=== PATIENT | female | born 2000 | race Caucasian/White ===

== ENCOUNTER → 2019-06-04 17:47 | Outpatient (BNVA) | payer BC, SELFPAY | PROVIDERS: Family Provider Nurse Practitioner; PCP Nurse Practitioner; Visit Provider Nurse Practitioner Family | DX: R11.0 Nausea (principal) | CPT/HCPCS: 81025 ==

== ENCOUNTER → 2019-12-10 18:14 | Outpatient (BNVA) | payer BC, SELFPAY | PROVIDERS: Family Provider Nurse Practitioner; PCP Nurse Practitioner; Visit Provider Nurse Practitioner Family | DX: N92.6 Irregular menstruation, unspecified (principal); Z32.01 Encounter for pregnancy test, result positive | CPT/HCPCS: 81025 ==

== ENCOUNTER → 2020-01-26 10:04 | Outpatient (BNVA) | payer BC, MEDICAID, SELFPAY | PROVIDERS: Family Provider Nurse Practitioner; PCP Nurse Practitioner; Visit Provider Obstetrics & Gynecology | DX: Z34.01 Encounter for supervision of normal first pregnancy, first trimester (principal) | CPT/HCPCS: 80307; 84315; 85027; 86592; 86762; 86803; 86850; 86900; 87086; 87340; 87806 ==

== ENCOUNTER → 2020-02-08 13:53 | Outpatient (BNVA) | payer BC, MEDICAID, SELFPAY | PROVIDERS: Family Provider Nurse Practitioner; PCP Nurse Practitioner; Visit Provider Obstetrics & Gynecology | DX: Z34.01 Encounter for supervision of normal first pregnancy, first trimester (principal); B37.3 Candidiasis of vulva and vagina | CPT/HCPCS: 84315; 87210; 87591; 88175 ==

== ENCOUNTER → 2020-03-02 13:08 | Outpatient (BNVA) | payer BC, MEDICAID, SELFPAY | PROVIDERS: Family Provider Nurse Practitioner; PCP Nurse Practitioner; Visit Provider Nurse Practitioner Women's Health | DX: Z34.01 Encounter for supervision of normal first pregnancy, first trimester (principal); B37.3 Candidiasis of vulva and vagina | CPT/HCPCS: 84315; 88175 ==

== ENCOUNTER → 2020-04-06 08:12 | Outpatient (BNVA) | payer BC, MEDICAID, SELFPAY | PROVIDERS: Family Provider Nurse Practitioner; PCP Nurse Practitioner; Visit Provider Obstetrics & Gynecology | DX: Z34.02 Encounter for supervision of normal first pregnancy, second trimester (principal) | CPT/HCPCS: 76805 ==

== ENCOUNTER → 2020-05-28 10:08 | Outpatient (BNVA) | payer BC, MEDICAID, SELFPAY | PROVIDERS: Family Provider Nurse Practitioner; PCP Nurse Practitioner; Visit Provider Obstetrics & Gynecology | DX: Z34.03 Encounter for supervision of normal first pregnancy, third trimester (principal) | CPT/HCPCS: 82950; 84315; 85027 ==

== ENCOUNTER → 2020-06-01 08:22 | Outpatient (BNVA) | payer BC, MEDICAID, SELFPAY | PROVIDERS: Family Provider Nurse Practitioner; PCP Nurse Practitioner; Visit Provider Obstetrics & Gynecology | DX: Z34.03 Encounter for supervision of normal first pregnancy, third trimester (principal); R73.09 Other abnormal glucose | CPT/HCPCS: 82951; 82952 ==

== ENCOUNTER 2020-07-10 19:28 | Outpatient (CLI) | payer BC, MEDICAID, SELFPAY ==
[2020-07-10 19:41] VITALS: BP 122/83; PULSE 130
[2020-07-10 20:26] VITALS: BP 109/78; PULSE 98; TEMP 36.8
[2020-07-10 20:28] VITALS: BMI 27.3
[2020-07-10 20:36] VITALS: BP 109/78; PULSE 98; RESP 16; TEMP 36.8
[2020-07-10 20:42] VITALS: BP 109/78; PULSE 98; RESP 16; TEMP 36.8
== END 2020-07-10 20:47 | disposition home or self-care (01) ==
LOC: OPOB 19:29 → OBGYN 19:30
PROVIDERS: Family Provider Nurse Practitioner; PCP Nurse Practitioner; Visit Provider Obstetrics & Gynecology
DX: O26.899 Other specified pregnancy related conditions, unspecified trimester (principal); Z3A.00 Weeks of gestation of pregnancy not specified; N89.8 Other specified noninflammatory disorders of vagina
CPT/HCPCS: 59025; 83986; 99211

== ENCOUNTER → 2020-07-20 09:13 | Outpatient (BNVA) | payer BC, MEDICAID, SELFPAY | PROVIDERS: Family Provider Nurse Practitioner; PCP Nurse Practitioner; Visit Provider Obstetrics & Gynecology | DX: Z34.03 Encounter for supervision of normal first pregnancy, third trimester (principal) | CPT/HCPCS: 84315; 87081 ==

== ENCOUNTER 2020-07-27 23:34 | Outpatient (CLI) | payer BC, MEDICAID, SELFPAY ==
[2020-07-27 23:34] VITALS: BMI 27.9
[2020-07-27 23:42] VITALS: RESP 16
[2020-07-27 23:51] VITALS: BP 113/76; PULSE 98; TEMP 36.6
== END 2020-07-28 02:03 | disposition home or self-care (01) ==
LOC: OPOB 23:41 → OBGYN 07-28 01:59
PROVIDERS: Family Provider Nurse Practitioner; PCP Nurse Practitioner; Visit Provider Obstetrics & Gynecology
DX: O26.899 Other specified pregnancy related conditions, unspecified trimester (principal); Z3A.00 Weeks of gestation of pregnancy not specified; R10.9 Unspecified abdominal pain
CPT/HCPCS: 59025; 84315; 99211

== ENCOUNTER 2020-08-03 10:32 | Inpatient (IN) | payer BC, MEDICAID, SELFPAY ==
[2020-08-03] VITALS (44 sets, daily range): BP systolic 96–138; BP diastolic 54–94; PULSE 68–142; RESP 16–18; TEMP 36.2–36.7; O2SAT 86–99; BMI 28.1
[2020-08-03 10:57] LABS: Basophils % 0.2 %; Eosinophils % 0.2 %; Hematocrit 35.6 % (37.0-47.0); Hemoglobin 11.7 g/dL (11.5-15.3); Lymphocytes # 2.3 10^3/uL (0.8-4.8); Mean Corpuscular HGB Conc 32.9 g/dL (30.0-36.0); Mean Corpuscular Hemoglobin 28.2 pg (28.0-34.0); Mean Corpuscular Volume 85.8 fL (81-99); Mean Platelet Volume 12.1 fL (7.4-10.4); Monocytes % 6.2 %; Neutrophils # 12.12 10^3/uL (1.8-7.7); Neutrophils % 77.9 %; Nucleated Red Blood Cells % 0 %; Platelet Count 203 10^3/cmm (130-400); Red Blood Count 4.15 10^6/uL (4.1-5.3); Red Cell Distribution Width 13.2 % (12.1-15.1); White Blood Count 15.6 10^3/uL (4.0-10.0)
[2020-08-03] MEDS: dextrose 5%-lactated ringers 1,000 ML 125 ML IV ×2 (10:58→19:56)
[2020-08-03] MEDS: fentaNYL 50 mcg/mL INJ 2mL IVP ×4 (10:58→18:26)
--- NOTE | 2020-08-03 12:16 | PC.NUTR ---
Nutrition risk triggered d/t to MST score of 2, however spoke with nurse who reports this was in error. Pt has not lost weight unintentionally recently. Will not complete assessment at this time, but will assess at LOS or as needed.
[2020-08-03] MEDS: lactated ringers 1,000 ML 999 ML IV (18:26)
--- NOTE | 2020-08-03 19:34 | P.ANESASSM_ITS ---
Pre-Anesthetic Assessment Pre-Anesthetic Assessment: Height/Weight: Height 1.6 m Weight 72.121 kg Temp Pulse Resp BP Pulse Ox 98.1 F 111 H 18 122/86 98 08/03/20 16:52 08/03/20 19:31 08/03/20 18:26 08/03/20 19:30 08/03/20 19:31 Was Beta Mario taken within 24 hours: N/A Was Clonidine taken within 24 hours: N/A Social: Social History: No alcohol and No tobacco Exam: Pre-Anes Outpt Exam: alert and oriented x 3 Airway: Submandibular: WNL Cervical ROM: WNL MP: 3 History/ROS: No significant history except as noted and No significant complaints Neuropsych: Neuropsych: Anxiety Anesthetic Plan: ASA status: 2 Anesthesia: Anesthesia Evaluation and Regional (specify below) Other: labor epidural Risk of > 500 ml blood loss (7ml/kg in children): No Meds/Allergies Current Medications: Current Medications Generic Name Dose Route Start Last Admin Trade Name Freq PRN Reason Stop Dose Admin Fentanyl 25 - 100 mcg 08/03/20 10:39 08/03/20 18:26 Fentanyl 50 Mcg/ Ml Inj 2ml IVP 100 mcg Q1H PRN Administration SEVERE PAIN Dextrose/Lactated Ringer's 1,000 mls @ 125 m ls/hr 08/03/20 10:45 08/03/20 18:31 Dextrose 5%-Lact ated Ringers IV Infused .Q8H JENNIFFER Infusion Lactated Ringer's 1,000 mls @ 999 m ls/hr 08/03/20 18:19 08/03/20 18:26 Lactated Ringers IV 999 mls/hr .Q1H1M PRN Administration See label comment s PFSH Anesthesia PFSH: Medical History Anxiety No pertinent past medical history neghx: htn,dm,thyroid,dvt/pe, herpes ----denies partner with herpes Surgical History No pertinent past surgical history Family History Family/Other Breast cancer Maternal Great Grandmother-- dx age unknown Diabetes Maternal side in general Grandmother Diabetes Maternal Grandfather Heart disease Maternal Hypertension Maternal Mother Hypercholesteremia Hypertension Female Reproductive History: : 1 Data Anesthesia CBC & Chem 7: 08/03/20 10:25 Other Labs: Laboratory Results - last 48 hr 08/03/20 08/03/20 10:25 10:25 WBC 15.6 H RBC 4.15 Hgb 11.7 Hct 35.6 L MCV 85.8 MCH 28.2 MCHC 32.9 RDW 13.2 Plt Count 203 MPV 12.1 H Neut % (Auto) 77.9 Lymph % (Auto) 15.0 [place] % (Auto) 6.2 Eos % (Auto) 0.2 Baso % (Auto) 0.2 Neut # (Auto) 12.12 H Lymph # (Auto) 2.3 [place] # (Auto) 1.0 H Eos # (Auto) 0.0 Baso # (Auto) 0.0 Nucleated RBC % (auto) 0 Nucleated RBCs # 0.0 Nasal/Oral COVID-19 PCR Cancelled Cardiac Studies: No Data to Display Anesthesia Procedures Date of Procedure: 08/03/20 Epidural: Time Out Performed: Yes Consents Signed: Procedure Consent Consent: from patient Lumbar Level: L2-L3 Epidural position: sitting Epidural procedure: sterile prep of area, 1% lidocaine to numb the area, 18 g needle, neg for paresthesia, test dose given (3ml), 1.5% xylocaine 1:200k epi, 0.2% Ropivacaine bolus ml (5ml), placed PCEA, no systemic response, sterile dressing applied, L.U.D. no apparent complications and 0.2% Ropiavacaine @ mls/hr (13)
[2020-08-04] VITALS (27 sets, daily range): BP systolic 99–139; BP diastolic 57–91; PULSE 79–130; RESP 16–18; TEMP 36.6–37
--- NOTE | 2020-08-04 02:28 | PM.OPHPUD ---
Labor & Delivery H&P Update Date of Procedure: August 04, 2020 Date H&P Performed: 07/27/20 H&P update information: I have reviewed H&P completed within last 30 days, I have examined patient prior to procedure and Changes to prior documentation as noted here Changes to previous documentation: cervix is now 4100/-2 Admission Diagnosis: Preop diagnosis: iup at 38 3/7
[2020-08-04] MEDS: dextrose 5%-lactated ringers 1,000 ML 125 ML IV (03:43)
[2020-08-04] MEDS: ondansetron 2 mg/ML SDV 2 mL 4 MG IVP (03:45)
[2020-08-04] MEDS: oxytocin 30 UNIT/500 ML BAG 600 UNIT IV (05:35)
[2020-08-04] MEDS: lidocaine 2% INJ 20 mL INJECTION (06:15)
--- NOTE | 2020-08-04 06:20 | P.PCNOB_ITS ---
Delivery Note: Date of delivery: August 04, 2020 Pre-delivery diagnoses: IUP at 38 3/ Post-delivery diagnoses: same-delivered Procedure: Op report anesthesia: Epidural Delivering Physician: viktoriya Estimated blood loss (mL): 300 Findings: term male in cephalic presentation Pre-Delivery Course: The patient was admitted in active labor. She progressed normally. She received an epidural for pain control. Delivery: The patient had complete cervical dilation and began to push. The head delivered in the REHANA position over an intact perineum under epidural anesthesia. The nose and mouth were bulb suctioned. The shoulders and body delivered atraumatically. The baby was placed onto the mother's abdomen. The cord was clamped and cut. Cord blood was obtained. The placenta delivered spontaneously. It was inspected and found to be intact. Inspection of the perineum revealed a second-degree perineal laceration with extension into the right sulcus. This was repaired in the usual fashion.. Estimated blood loss 300 mL. Apgars on baby were 9 at 1 minute and 9 at 5 minutes. Weight of baby is 7 pounds 12 ounces. Mother and baby were stable post delivery. Coding Level of Care Code Acute Sticker Operator for Clara Lane
[2020-08-04] MEDS: prenatal vitamin Capsule 1 CAP PO (10:01)
[2020-08-04] MEDS: ibuprofen 800 mg tablet PO ×3 (10:02→21:37)
[2020-08-04] MEDS: docusate sodium 100 mg Capsule PO ×2 (10:02→18:45)
[2020-08-04] MEDS: benzocaine-menthol 78 gm Canister 1 SPRAY TOPICAL (10:02)
[2020-08-04 12:53] LABS: Quest SARS-CoV-2 RNA NOT DETECTED (NOT DETECTED)
--- NOTE | 2020-08-04 12:53 | PC.NURSE ---
1020 Pt moved to room OB 11. Pt ambulated and tolerated well. Pt oriented to room. Pt's mom at side. Baby moved with mom via open crib.
[2020-08-04 18:06] LABS: Hematocrit 31.8 % (37.0-47.0); Mean Corpuscular HGB Conc 31.4 g/dL (30.0-36.0); Mean Corpuscular Hemoglobin 27.6 pg (28.0-34.0); Mean Corpuscular Volume 87.8 fL (81-99); Mean Platelet Volume 11.7 fL (7.4-10.4); Platelet Count 204 10^3/cmm (130-400); Red Blood Count 3.62 10^6/uL (4.1-5.3); Red Cell Distribution Width 13.2 % (12.1-15.1); White Blood Count 21.7 10^3/uL (4.0-10.0)
[2020-08-05 06:28] VITALS: BP 113/77; PULSE 86; TEMP 36.8
--- NOTE | 2020-08-05 06:49 | PC.NURSE ---
Discussed positioning for , latch techniques, how to use a shield and hand expression. latched with 24mm nipple shield and audible swallows were heard. Patient stated that the latch was more comfortable.
[2020-08-05] MEDS: lanolin oint 7 gm 1 APPLIC TOPICAL (07:19)
[2020-08-05] MEDS: acetaminophen 325 mg Tablet 650 MG PO (07:19)
[2020-08-05] MEDS: benzocaine-menthol 78 gm Canister 1 SPRAY TOPICAL (07:19)
[2020-08-05] MEDS: prenatal vitamin Capsule 1 CAP PO (09:45)
[2020-08-05] MEDS: docusate sodium 100 mg Capsule PO (09:45)
[2020-08-05] MEDS: ibuprofen 800 mg tablet PO (09:45)
[2020-08-05 09:50] VITALS: BP 116/81; PULSE 88; RESP 16; TEMP 36.7
[2020-08-05 10:10] VITALS: BP 116/81; PULSE 88; RESP 16; TEMP 36.7
--- NOTE | 2020-08-05 10:21 | PM.DCS ---
Discharge Providers Date of Admission: 08/03/20 10:32 Date of Discharge: August 05, 2020 Attending Provider at Admission: Shaheen Linda MD Attending Provider at Discharge: Shaheen Linda MD Primary Care Provider: BRIGIDA Shen Diagnoses at Discharge Discharge Diagnosis (1) state: Status: Acute Reason for Visit Reason for Visit: Abdominal pain Hospital Course Hospital Course The patient was admitted in active labor. She had spontaneous delivery of a term male . She did well and was ready for discharge on day #1 Physical Exam Urinary Catheter Management^: Hernandez: Cath Placed During This Visit: yes, but has since been removed by the nurse Reason for Continuing Indwelling Catheter: Decision to DC Catheter Urinary Catheter Date of Insertion: 08/03/20 Urinary Catheter Time of Insertion: 19:35 Date Urinary Catheter Removed: 08/04/20 Time Urinary Catheter Discontinued: 05:20 Discharge Data Data Completed and Pending: Labs from last 24 hours 08/04/20 08/03/20 17:50 10:25 WBC 21.7 H RBC 3.62 L Hgb 10.0 L Hct 31.8 L MCV 87.8 MCH 27.6 L MCHC 31.4 RDW 13.2 Plt Count 204 MPV 11.7 H SARS-CoV-2 RNA (RT -PCR) Not detected Vitals: Last Vital Signs Temp 98.1 F 08/05/20 10:10 Pulse 88 08/05/20 10:10 Resp 16 08/05/20 10:10 BP 116/81 08/05/20 10:10 Pulse Ox 99 08/03/20 19:41 Discharge Plan Discharge Patient Disposition: Home Condition: Stable Prescriptions: Continued prenat.vits,jared,[id number] Tablet 1 tab PO DAILY RF: 0 fluoxetine 20 mg capsule 20 mg PO DAILY Qty: 30 RF: 6 Discharge Orders: Discharge Order (Routine); Ordered 08/05/20 Ordered By: Kisha Bravo Referrals: Kisha Bravo MD [Physician] - 6 Weeks (Call first thing thursday morning to schedule your 6 week post- visit. ) Patient Instructions: Vitamins (By mouth), Pre-eclampsia and Eclampsia (DC), Bleeding (DC), OB Discharge Report, OB Food/Drug Interaction Guide, OB Care at Home, Opioid Safety, OB Proud Parent Packet, OB Vaginal Deliveries - [facility] Discharge Attestations Time Spent in Discharge Care*: less than 30 min Quality Metrics Clinical Quality Measures During this hospital stay, did patient experience: None Coding Level of Care Code Acute Chg FW DC note Diagnoses state Z39.2
== END 2020-08-05 12:06 | disposition home or self-care (01) | DRG 807 ==
LOC: OPOB 10:33 → OBGYN 10:33
PROVIDERS: Obstetrics & Gynecology; Admitting Provider Obstetrics & Gynecology; PCP Nurse Practitioner; Visit Provider Obstetrics & Gynecology
DX: O99.344 Other mental disorders complicating childbirth (principal); Z37.0 Single live birth; F41.9 Anxiety disorder, unspecified; Z3A.38 38 weeks gestation of pregnancy
CPT/HCPCS: 36415; 51702; 59025; 59409; 85025; 85027; 87635; 96374; 96375; 98960; 99211; J2405; J2795; J3010

== ENCOUNTER → 2020-10-03 15:06 | Outpatient (BNVA) | payer BC, MEDICAID, SELFPAY | PROVIDERS: PCP Nurse Practitioner; Visit Provider Obstetrics & Gynecology | DX: Z30.9 Encounter for contraceptive management, unspecified (principal) | CPT/HCPCS: 81025 ==

== ENCOUNTER 2020-11-23 11:29 | Emergency (ER) | payer BC, MEDICAID, SELFPAY ==
[2020-11-23 11:47] VITALS: BP 111/64; PULSE 130; RESP 20; TEMP 39.2; O2SAT 99; BMI 23.9
[2020-11-23] MEDS: acetaminophen 500 mg Tablet 1000 MG PO (14:32)
--- NOTE | 2020-11-23 14:41 | ED_ITS ---
HPI - Fever General: Chief Complaint: Fever Stated Complaint: FEVER (102.5 @HOME); H/A; SORE THROAT Time Seen by Provider: 11/23/20 14:37 History of Present Illness: HPI Narrative: Complains about a fever and a very sore throat. Also has headache. Says her body aches. Has been vomiting some also over the last couple days. Denies loss of taste or smell. No known Covid exposure. MD elicited complaint: fever Onset (ago): day(s) Exacerbating factors: nothing Relieving factors: nothing Associated symptoms: Reports chills, headache(s), sore throat and vomiting; Deny chest pain, extremity pain or nasal congestion Treatments prior to arrival fever: acetaminophen Review of Systems Const: Reports: fever(s) and chills Eyes: Denies: change in vision or blurry vision ENMT: Denies: throat pain or nasal congestion Card: Denies: chest pain or dyspnea on exertion Resp: Denies: dyspnea, productive cough or non-productive cough GI: Reports: vomiting Musc: Denies: extremity pain Skin/Breast: Denies: rash Neuro: Reports: headache(s) Psych: Denies: anxiety or depression Cliff/Lymph: Denies: easy bruising PFSH ED PFSH: Medical History Anxiety No pertinent past medical history neghx: htn,dm,thyroid,dvt/pe, herpes ----denies partner with herpes Surgical History No pertinent past surgical history Family History Family/Other Breast cancer Maternal Great Grandmother-- dx age unknown Diabetes Maternal side in general Grandmother Diabetes Maternal Grandfather Heart disease Maternal Hypertension Maternal Mother Hypercholesteremia Hypertension Physical Exam Const: COMMON NORMALS: no acute distress, average body habitus and patient oriented x3 HENMT: COMMON NORMALS: normocephalic HEAD & SCALP: normal to inspection and normocephalic FACE & SINUS: normal facial exam THROAT: posterior oropharynx abnormal erythema Eye: COMMON NORMALS: conjunctivae normal GENERAL EYE: appearance normal, both eyes and all related structures CONJUNCTIVA: Yes conjunctivae normal Neck/C-Spine: COMMON NORMALS: no JVD Chest: COMMONS NORMALS: normal inspection of the chest Resp: COMMON NORMALS: normal respiratory effort and clear to auscultation bilaterally AUSCULTATION: clear to auscultation bilaterally Cardio: COMMON NORMALS: no JVD, regular rate and regular rhythm RATE: regular rate RHYTHM: regular rhythm GI: COMMON NORMALS: Normal to inspection, nondistended, normoactive bowel sounds present Extremity: COMMON NORMALS: normal to inspection and full ROM Neuro: COMMON NORMALS: patient oriented x3 Course Vital Signs: Vital signs: Vital Signs Temperature 102.5 F H 11/23/20 11:47 Pulse Rate 113 H 11/23/20 15:32 Respiratory Rate 14 11/23/20 15:32 Blood Pressure 107/65 11/23/20 15:32 Pulse Oximetry 98 11/23/20 15:32 MDM - Fever MDM Narrative: Medical decision making narrative: Patient with nonstrep pharyngitis most likely. Patient denies any other symptoms. Denies any urine problems. Does not have any neck pain cough shortness of breath abdominal pain. Laboratory studies were negative. Patient's fever come down well with Tylenol. Patient placed off work to next 3 days gave strict instruction follow-up for worsening symptoms. Take Tylenol and/or ibuprofen for fever and discomfort. Drink plenty of fluids. Lab Data: Labs: Lab Results 11/23/20 11/23/20 11/23/20 14:37 14:37 14:37 Influenza Type A A g Negative (Negative) Influenza Type B A g Negative (Negative) SARS-CoV-2 Ag (Rap id) Negative (Negative) Group A Strep Rapi d Negative (Negative) Discharge Plan Discharge Patient Disposition: Home Clinical Impression: Viral infection Condition: Stable Prescriptions: New amoxicillin 500 mg capsule 500 mg PO TID 10 Days Qty: 30 RF: 0 No Action prenat.vits,jared,[id number] Tablet 1 tab PO DAILY RF: 0 fluoxetine 20 mg capsule 20 mg PO DAILY Qty: 30 RF: 6 Discharge Orders: Discharge ED (Routine); Ordered 11/23/20 Ordered By: Radhames Silva Referrals: Nellie Allison, BIOLOGY ADJUNCT INSTRUCTOR-C [Primary Care Provider] - Discharge Diet: Usual diet Discharge Activity: Increase activity as tolerated Patient Instructions: Pharyngitis (ED) Activity Restrictions/Additional Instructions: Follow-up with medical provider as directed. Take medications as prescribed. Return to the ER or your medical provider if condition worsens. Please read and understand discharge instructions. If any questions ask please. Stand Alone Forms: Work/School Release Coding Level of Care Code ED Solar Energy System Installer Helper for Clara Fwd Exam Comprehensive
[2020-11-23 15:11] LABS: Rapid Strep A Test Negative (Negative)
[2020-11-23 15:24] LABS: Influenza A by IFA Negative (Negative); Influenza B by IFA Negative (Negative)
[2020-11-23 15:28] LABS: SARS Covid-2 Antigen Negative (Negative)
[2020-11-23 15:32] VITALS: BP 107/65; PULSE 113; RESP 14; O2SAT 98
[2020-11-23] MEDS: amoxicillin 500 mg Capsule PO (15:39)
[2020-11-23] MEDS: ibuprofen 800 mg tablet PO (15:40)
[2020-11-23 15:56] VITALS: TEMP 37.9
== END 2020-11-23 15:57 | disposition home or self-care (01) ==
PROVIDERS: Emergency Provider Nurse Practitioner Family; PCP Nurse Practitioner
DX: B34.9 Viral infection, unspecified (principal)
CPT/HCPCS: 87081; 87426; 87804; 87880; 99283

== ENCOUNTER 2021-04-22 19:08 | Emergency (ER) | payer BC, MEDICAID, SELFPAY ==
[2021-04-22 19:27] VITALS: BP 112/73; PULSE 90; RESP 18; TEMP 36.9; O2SAT 99; BMI 22.4
--- NOTE | 2021-04-22 20:09 | ECG_ITS ---
[facility] Test Date: 2021-04-22 Pat Name: Lennie King Department: Room: Gender: Female President Ceo & Founder: : 2000 Requested By: Jorgito John Order Number: [id number] Coker MD: Rich Sam M.D. Measurements Intervals [place] Rate: 79 P: 61 NE: 110 QRS: 86 QRSD: 68 T: 42 QT: 336 QTc: 385 Interpretive Statements SINUS RHYTHM WITH SINUS ARRHYTHMIA WITH SHORT NE INTERVAL No previous ECG available for comparison Electronically Signed On 04-22-2021 21:49:51 CDT by Rich Sam M.D. [id number]
[2021-04-22 20:52] LABS: Basophils % 0.5 %; Eosinophils # 0.1 10^3/uL (0.0-0.8); Eosinophils % 1.7 %; Hematocrit 40.8 % (37.0-47.0); Hemoglobin 12.9 g/dL (11.5-15.3); Lymphocytes % 38.2 %; Mean Corpuscular HGB Conc 31.6 g/dL (30.0-36.0); Mean Corpuscular Hemoglobin 27.3 pg (28.0-34.0); Mean Corpuscular Volume 86.3 fl (81-99); Mean Platelet Volume 10.2 fL (7.4-10.4); Monocytes # 0.5 10^3/uL (0.2-0.9); Neutrophils # 4.07 10^3/uL (1.8-7.7); Neutrophils % 52.5 %; Nucleated Red Blood Cells % 0 %; Platelet Count 271 10^3/cmm (130-400); Red Blood Count 4.73 10^6/uL (4.1-5.3); Red Cell Distribution Width 13.2 % (12.1-15.1); White Blood Count 7.8 10^3/uL (4.0-10.0)
[2021-04-22 21:10] LABS: HCG, Serum Qual Negative (Negative)
[2021-04-22 21:16] LABS: Alanine Aminotransferase 6 U/L (0-33); Alkaline Phosphatase 65 IU/L (35-105); Aspartate Amino Transferase 12 U/L (0-32); Blood Urea Nitrogen 16 mg/dL (6-20); Carbon Dioxide 24 mmol/L (22-29); Chloride 102 mmol/L (98-107); Globulin 2.5 g/dL (1.3-4.6); Glomerular Filtration Rate 123.9 mL/min (90-130); Glucose 92 mg/dL (65-115); Lipase 33 U/L (13-60); Osmolality Calculated 285 mOsm/kg (285-295); Sodium 137 mmol/L (136-145); Total Bilirubin 0.3 mg/dL (0.15-1.2); Total Protein 7.5 g/dL (6.6-8.7)
[2021-04-22 21:17] LABS: Troponin T (5th) Once 6 ng/L (0-10)
[2021-04-22 21:19] LABS: Anion Gap 15.5 (5-19); Potassium 4.5 mmol/L (3.5-5.1)
--- NOTE | 2021-04-22 22:20 | ED_ITS ---
HPI - Chest Pain General: Chief Complaint: Chest Pain Stated Complaint: Sharp Pain between Breast plate Time Seen by Provider: 04/22/21 22:19 History of Present Illness: Patient is a 21-year-old female comes to the ED with chest pain. Symptoms started approximately 3 days ago. Patient says she was at rest getting ready to eat on Thursday and she started feeling some chest pain that she describes as achy and constant. It starts in the epigastric region and radiated to both right and left lower ribs. She has never had this pain before. Pain worsened with upper body movement. Denies any worsening pain after eating or laying flat. She reports some mild nausea but no vomiting. She has been able to eat and drink normally. Patient did state that should her mother was recently hospitalized and that has been stressful for. No excessive caffeine intake daily. Denies any shortness of breath, cough, fever, chills, bladder or bowel symptoms. Associated symptoms: Deny abdominal pain, dyspnea, fever(s), nausea, palpitations or vomiting Review of Systems Const: Denies: fever(s), chills or fatigue Eyes: Denies: change in vision or eye discomfort ENMT: Denies: throat pain, odynophagia, nasal discharge or nasal congestion Card: Reports: chest pain; Denies: palpitations, edema, swelling of feet/ankles, dyspnea on exertion or orthopnea Resp: Denies: dyspnea, productive cough or non-productive cough GI: Denies: abdominal pain, nausea, vomiting, diarrhea, constipation or hematochezia : Denies: flank pain, dysuria or hematuria Musc: Denies: neck pain, back pain or extremity swelling Skin/Breast: Denies: rash or new lesions Neuro: Denies: headache(s), numbness in extremities or weakness in extremities Psych: Reports: anxiety (some stress and anxiety due to mother recently being hospitalized) PFS ED PFSH: Medical History Anxiety No pertinent past medical history neghx: htn,dm,thyroid,dvt/pe, herpes ----denies partner with herpes Surgical History No pertinent past surgical history Family History Family/Other Breast cancer Maternal Great Grandmother-- dx age unknown Diabetes Maternal side in general Grandmother Diabetes Maternal Grandfather Heart disease Maternal Hypertension Maternal Mother Hypercholesteremia Hypertension Physical Exam Const: COMMON NORMALS: no acute distress, patient oriented x3 and alert GENERAL APPEARANCE: cooperative, comfortable and other (Patient got a little tearful telling me about her mother being hospitalized) HENMT: COMMON NORMALS: normocephalic HEAD & SCALP: normocephalic MOUTH: Normal oral and palatal mucosa present THROAT: posterior oropharynx normal and uvula midline Eye: COMMON NORMALS: Equal, round and reactive pupils present and conjunctivae normal CONJUNCTIVA: Yes conjunctivae normal PUPIL: Yes Equal, round and reactive pupils present Neck/C-Spine: COMMON NORMALS: supple GENERAL: Yes normal visual inspection Resp: COMMON NORMALS: normal respiratory effort, No retractions, No use of accessory muscles and clear to auscultation bilaterally AUSCULTATION: clear to auscultation bilaterally Cardio: COMMON NORMALS: regular rate, regular rhythm, S1 normal heart sound present, S2 normal heart sound present, No gallops present (Cardio), No clicks present (Cardio), No murmurs present (Cardio) and Peripheral pulses 2+ throughout RATE: regular rate RHYTHM: regular rhythm HEART SOUNDS: S1 normal heart sound present and S2 normal heart sound present PERIPHERAL PULSES: Peripheral pulses 2+ throughout GI: COMMON NORMALS: Normal to inspection, nondistended, normoactive bowel sounds present, Soft to palpation and no masses PALPATION: Yes Soft to palpation and Yes Tenderness to palpation present (GI) (Mild epigastric tenderness.) : COMMON NORMALS: Yes no CVA tenderness BLADDER/KIDNEY EXAM: Yes no CVA tenderness Back/Pelvis: COMMON NORMALS: no CVA tenderness Extremity: COMMON NORMALS: normal to inspection Neuro: COMMON NORMALS: patient oriented x3 and moves all extremities SENSORIUM/ORIENTATION: Yes alert Skin: GENERAL SKIN EXAM: dry skin Course Reevaluation(s): Reevaluation #1: GI cocktail given to patient and it did not improve her symptoms. Vital Signs: Vital signs: Vital Signs Temperature 98.5 F 04/22/21 23:04 Pulse Rate 85 04/22/21 23:04 Respiratory Rate 18 04/22/21 23:04 Blood Pressure 120/74 04/22/21 23:04 Pulse Oximetry 99 04/22/21 23:04 MDM - Chest Pain Medical Decision Making Patient is a 21-year-old female comes to the ED with chest pain. Symptoms started approximately 3 days ago while at rest. Chest pain located in the epigastric region and radiates to bilateral lower ribs. Chest pain worsens with upper body movement. Does not worsen after eating or laying down. She admits to having some recent stress and anxiety currently because her mom was just hospitalized. Vitals are stable. Patient appears nontoxic and in no acute distress or pain. She got a little tearful when talking about her mom being hospitalized. She had some mild epigastric region tenderness to palpation. Rest of exam was benign. CBC, CMP and lipase were unremarkable. hCG negative. Troponin negative. EKG showed normal sinus rhythm with no ST segment elevation or depression seen. She was given a GI cocktail here in the ED and it did not help her symptoms. Patient diagnosed with noncardiac chest pain likely due to stress/anxiety versus musculoskeletal chest pain. She was discharged home with a prescription for Vistaril to take for any acute anxiety. She was told to follow-up with her PCP in a week for reevaluation. Return to ED precautions given. Patient understood and agreed with plan. Lab Data I reviewed the patient's lab results. : 04/22/21 20:47 04/22/21 20:47 Laboratory Results WBC 7.8 10^3/uL (4.0-10.0) 04/22/21 20:47 RBC 4.73 10^6/uL (4.1-5.3) 04/22/21 20:47 Hgb 12.9 g/dL (11.5-15.3) 04/22/21 20: Hct 40.8 % (37.0-47.0) 04/22/21 20:47 MCV 86.3 fl (81-99) 04/22/21 20: MCH 27.3 pg (28.0-34.0) L 04/22/21 20: MCHC 31.6 g/dL (30.0-36.0) 04/22/21 20:47 RDW 13.2 % (12.1-15.1) 04/22/21 20: Plt Count 271 10^3/cmm (130-400) 04/22/21 20:47 MPV 10.2 fL (7.4-10.4) 04/22/21 20:47 Neut % (Auto) 52.5 % 04/22/21 20:47 Lymph % (Auto) 38.2 % 04/22/21 20:47 [place] % (Auto) 7.0 % 04/22/21 20:47 Eos % (Auto) 1.7 % 04/22/21 20:47 Baso % (Auto) 0.5 % 04/22/21: Neut # (Auto) 4.07 10^3/uL (1.8-7.7) 04/22/21 20: Lymph # (Auto) 3.0 10^3/uL (0.8-4.8) 04/22/21 20: [place] # (Auto) 0.5 10^3/uL (0.2-0.9) 04/22/21 20: Eos # (Auto) 0.1 10^3/uL (0.0-0.8) 04/22/21 20: Baso # (Auto) 0.0 10^3/uL (0.0-0.1) 04/22/21 20: Nucleated RBC % (auto) 0 % 04/22/21: Nucleated RBCs # 0.0 /100WBC 04/22/21 20: Sodium 137 mmol/L (136-145) 04/22/21 20: Potassium 4.5 mmol/L (3.5-5.1) 04/22/21 20: Chloride 102 mmol/L (98-107) 04/22/21 20: Carbon Dioxide 24 mmol/L (22-29) 04/22/21 20:47 Anion Gap 15.5 (5-19) 04/22/21 20:47 BUN 16 mg/dL (6-20) 04/22/21 20:47 Creatinine 0.6 mg/dL (0.5-0.9) 04/22/21 20: GFR Calculation 123.9 mL/min (90-130) 04/22/21 20:47 Glucose 92 mg/dL (65-115) 04/22/21 20:47 Calculated Osmolality 285 mOsm/kg (285-295) 04/22/21 20:47 Calcium 9.0 mg/dL (8.5-10.5) 04/22/21 20:47 Total Bilirubin 0.3 mg/dL (0.15-1.2) 04/22/21 20:47 AST 12 U/L (0-32) 04/22/21 20:47 ALT 6 U/L (0-33) 04/22/21 20:47 Alkaline Phosphatase 65 IU/L (35-105) 04/22/21 20:47 Troponin T Gen 5 ng/L 6 ng/L (0-10) 04/22/21 20:47 Total Protein 7.5 g/dL (6.6-8.7) 04/22/21 20:47 Albumin 5.0 g/dL (3.5-5.2) 04/22/21 20:47 Globulin 2.5 g/dL (1.3-4.6) 04/22/21 20:47 Lipase 33 U/L (13-60) 04/22/21 20:47 HCG, Qual Negative (Negative) 04/22/21 20:47 EKG Data EKG 1: EKG interpretation date: 04/22/21 Interpretation: Normal sinus rhythm with no ST segment elevation or depression seen. 79 bpm. Discharge Plan Discharge Patient Disposition: Home Clinical Impression: Non-cardiac chest pain Condition: Stable Prescriptions: New Vistaril 50 mg capsule 50 mg PO BID PRN (Reason: acute anxiety) Qty: 15 0RF No Action prenat.vits,jared,[id number] Tablet 1 tab PO DAILY 0RF fluoxetine 20 mg capsule 20 mg PO DAILY Qty: 30 6RF Discharge Orders: Discharge ED (Routine); Ordered 04/22/21 Ordered By: Jorgito John Referrals: Nellie Allison, GLOVE BRUSHER-C [Primary Care Provider] - Discharge Diet: Regular Discharge Activity: Increase activity as tolerated Patient Instructions: Noncardiac Chest Pain (ED) Activity Restrictions/Additional Instructions: Follow-up with medical provider as directed in the next 5 to 7 days for reevaluation. Return to the ER or your medical provider if condition worsens. Please read and understand discharge instructions. Thank you for choosing [facility] for your healthcare needs today. Please realize this is an emergency room and that we are providing you with a medical screening exam and this may not be complete and all inclusive of all the testing and or work up that you may need to determine your ailment or severity of your illness. It is very important that you follow up as instructed or that you return to the Emergency Department should you have concerns or if your condition changes or worsens in any way. Coding Level of Care Code ED Repair Mechanic for Clara Lane Exam Comprehensive
[2021-04-22 22:41] VITALS: BP 112/73; PULSE 90; RESP 18; TEMP 36.9; O2SAT 99
[2021-04-22] MEDS: lidocaine 2% viscous 15 ML, aluminum-mag hydrox-simethicon 30 ML, sucralfate oral liq 1 GM PO (22:41)
[2021-04-22 23:04] VITALS: BP 120/74; PULSE 85; RESP 18; TEMP 36.9; O2SAT 99
== END 2021-04-22 23:07 | disposition home or self-care (01) ==
PROVIDERS: Emergency Provider Physician Assistant; PCP Nurse Practitioner
DX: R07.89 Other chest pain (principal)
CPT/HCPCS: 80053; 83690; 84484; 84703; 85025; 93005; 99283

== ENCOUNTER 2022-08-16 14:59 | Emergency (ER) | payer BC, MEDICAID, SELFPAY ==
[2022-08-16 15:04] VITALS: BP 107/72; PULSE 106; RESP 15; TEMP 36.9; O2SAT 96; BMI 24.7
--- NOTE | 2022-08-16 15:47 | XRR_ITS ---
PROCEDURE INFORMATION: Exam: XR Chest Exam date and time: 08/16/2022 4:23 PM Age: 22 years old Clinical indication: Pain; Chest pressure; Additional info: Palpitations TECHNIQUE: Imaging protocol: Radiologic exam of the chest. Views: 1 view. COMPARISON: No relevant prior studies available. FINDINGS: Lungs: Unremarkable. No consolidation. Pleural spaces: Unremarkable. No pleural effusion. No pneumothorax. Heart/Mediastinum: Unremarkable. No cardiomegaly. Bones/joints: Unremarkable. XR/XR chest 1V portable [id number] IMPRESSION: No acute findings.
--- NOTE | 2022-08-16 16:03 | ED_ITS ---
HPI - Arrhythmia/Palpitations General: Chief Complaint: Arrhythmia/Palpitations Stated Complaint: high bp/heart rate,(check w/apple watch),nausea Time Seen by Provider: 08/16/22 15:47 History of Present Illness: Patient is a 22-year-old female comes to the ED with palpitations. Patient states she has been having these episodes of heart palpitations on and off for the past 3 days. During these episodes she will have an elevated heart rate anywhere from 110-160 according to her Apple Watch. She endorses having some nausea during those episodes and has had a mild headache as well. She is also had some low blood pressure readings at home with a blood pressure of 90/68. Denies any chest pain, shortness of breath, fevers, vomiting, bladder or bowel symptoms. Patient did state that she did just come back from a float trip and thinks she might be a little dehydrated. Patient states that her mother has atrial fibrillation. Associated symptoms: Reports nausea; Deny vomiting Review of Systems Const: Denies: fever(s), chills or fatigue Eyes: Denies: change in vision or eye discomfort ENMT: Denies: throat pain, odynophagia, nasal discharge or nasal congestion Card: Reports: palpitations; Denies: chest pain, edema, swelling of feet/ankles, dyspnea on exertion or ortho pnea Resp: Denies: dyspnea, productive cough or non-productive cough GI: Reports: nausea; Denies: abdominal pain, vomiting, diarrhea, constipation or hematochezia : Denies: flank pain, dysuria or hematuria Musc: Denies: neck pain, back pain or extremity swelling Skin/Breast: Denies: rash or new lesions Neuro: Reports: headache(s); Denies: numbness in extremities or weakness in extremities PFS ED PFSH: Medical History Anxiety Family history of atrial fibrillation No pertinent past medical history neghx: htn,dm,thyroid,dvt/pe, herpes ----denies partner with herpes Surgical History No pertinent past surgical history Family History Family/Other Breast cancer Maternal Great Grandmother-- dx age unknown Diabetes Maternal side in general Grandmother Diabetes Maternal Grandfather Heart disease Maternal Hypertension Maternal Mother Hypercholesteremia Hypertension Other Family history of atrial fibrillation Social History Substance/Drug Use: never Physical Exam Const: COMMON NORMALS: no acute distress, patient oriented x3 and alert HENMT: COMMON NORMALS: normocephalic HEAD & SCALP: normocephalic MOUTH: Normal oral and palatal mucosa present THROAT: posterior oropharynx normal and uvula midline Neck/C-Spine: COMMON NORMALS: supple GENERAL: Yes normal visual inspection Resp: COMMON NORMALS: normal respiratory effort, No retractions, No use of accessory muscles and clear to auscultation bilaterally AUSCULTATION: clear to auscultation bilaterally Cardio: COMMON NORMALS: regular rate, regular rhythm, S1 normal heart sound present, S2 normal heart sound present, No gallops present (Cardio), No clicks present (Cardio), No murmurs present (Cardio) and Peripheral pulses 2+ throughout RATE: regular rate RHYTHM: regular rhythm HEART SOUNDS: S1 normal heart sound present and S2 normal heart sound present PERIPHERAL PULSES: Peripheral pulses 2+ throughout GI: COMMON NORMALS: Normal to inspection, nondistended, normoactive bowel sounds present, Soft to palpation and no masses PALPATION: Yes Soft to palpation and Yes Tenderness to palpation present (GI) (Mild generalized tenderness in bilateral upper abdomen) : COMMON NORMALS: Yes no CVA tenderness BLADDER/KIDNEY EXAM: Yes no CVA tenderness Back/Pelvis: COMMON NORMALS: no CVA tenderness Extremity: COMMON NORMALS: normal to inspection Neuro: COMMON NORMALS: patient oriented x3 SENSORIUM/ORIENTATION: Yes alert GAIT: Yes Normal gait present Skin: GENERAL SKIN EXAM: dry skin Course Vital Signs: Vital signs: Vital Signs Temperature 98.5 F 08/16/22 15:04 Pulse Rate 88 08/16/22 17:35 Respiratory Rate 19 H 08/16/22 17:35 Blood Pressure 110/72 08/16/22 17:35 Pulse Oximetry 100 08/16/22 17:35 Oxygen Delivery Me thod Room Air 08/16/22 15:04 MDM - Arrhythmia/Palpitations Medical Decision Making Patient is a 22-year-old female comes to the ED with palpitations. Patient states she has been having these episodes of heart palpitations on and off for the past 3 days. During these episodes she will have an elevated heart rate anywhere from 110-160 according to her Apple Watch. She endorses having some nausea during those episodes and has had a mild headache as well. She is also had some low blood pressure readings at home with a blood pressure of 90/68. Denies any chest pain, shortness of breath, fevers, vomiting, bladder or bowel symptoms. Patient did state that she did just come back from a float trip and thinks she might be a little dehydrated. Patient states that her mother has atrial fibrillation. Pulse a little elevated at 106, but the rest of vitals are stable. Patient appears nontoxic and in no acute distress or pain. She has some mild generalized tenderness in upper abdomen bilaterally. Rest of exam is benign. CBC, CMP, TSH were all unremarkable. hCG negative. Troponin negative. EG showed normal sinus rhythm, chest x-ray showed no acute findings. Patient was given 1 L of IV fluids, Zofran and Toradol and she was feeling a lot better. After IV fluids her pulse was consistently in the 80s. I placed an order with case management for patient to be set up with a Holter monitor to see if he can capture some of these heart palpitation events. She was stable for discharge home and diagnosed with heart palpitations and headache. I sent her home with a prescription for Zofran to help with any recurrent nausea. Return to ED precautions given. Follow-up with your PCP within the next 7 to 10 days. Patient understood and agreed with plan. Lab Data I reviewed the patient's lab results. 08/16/22 16:10 08/16/22 16:10 Radiology Impressions Chest X-Ray 08/16/22 15:47 IMPRESSION: No acute findings. Laboratory Results WBC 10.0 10^3/uL (4.0-10.0) 08/16/22 16:10 RBC 5.05 10^6/uL (4.1-5.3) 08/16/22 16:10 Hgb 14.2 g/dL (11.5-15.3) 08/16/22 16:10 Hct 43.3 % (37.0-47.0) 08/16/22 16:10 MCV 85.7 fl (81-99) 08/16/22 16:10 MCH 28.1 pg (28.0-34.0) 08/16/22 16:10 MCHC 32.8 g/dL (30.0-36.0) 08/16/22 16:10 RDW 12.4 % (12.1-15.1) 08/16/22 16:10 Plt Count 257 10^3/cmm (130-400) 08/16/22 16:10 MPV 10.1 fL (7.4-10.4) 08/16/22 16:10 Neut % (Auto) 69.3 % 08/16/22 16:10 Lymph % (Auto) 21.4 % 08/16/22 16:10 [place] % (Auto) 8.1 % 08/16/22 16:10 Eos % (Auto) 0.8 % 08/16/22 16:10 Baso % (Auto) 0.3 % 08/16/22 16:10 Neut # (Auto) 6.91 10^3/uL (1.8-7.7) 08/16/22 16:10 Lymph # (Auto) 2.1 10^3/uL (0.8-4.8) 08/16/22 16:10 [place] # (Auto) 0.8 10^3/uL (0.2-0.9) 08/16/22 16:10 Eos # (Auto) 0.1 10^3/uL (0.0-0.8) 08/16/22 16:10 Baso # (Auto) 0.0 10^3/uL (0.0-0.1) 08/16/22 16:10 Nucleated RBC % (auto) 0 % 08/16/22 16:10 Nucleated RBCs # 0.0 /100WBC 08/16/22 16:10 Sodium 136 mmol/L (136-145) 08/16/22 16:10 Potassium 4.1 mmol/L (3.5-5.1) 08/16/22 16:10 Chloride 101 mmol/L (98-107) 08/16/22 16:10 Carbon Dioxide 24 mmol/L (22-29) 08/16/22 16:10 Anion Gap 15.1 (5-19) 08/16/22 16:10 BUN 14 mg/dL (6-20) 08/16/22 16:10 Creatinine 0.7 mg/dL (0.5-0.9) 08/16/22 16:10 GFR Calculation 102.8 mL/min (90-130) 08/16/22 16:10 Glucose 81 mg/dL (65-115) 08/16/22 16:10 Calculated Osmolality 282 mOsm/kg (285-295) L 08/16/22 16:10 Calcium 9.1 mg/dL (8.5-10.5) 08/16/22 16:10 Total Bilirubin 0.3 mg/dL (0.15-1.2) 08/16/22 16:10 AST 10 U/L (0-32) 08/16/22 16:10 ALT 6 U/L (0-33) 08/16/22 16:10 Alkaline Phosphatase 74 U/L (35-105) 08/16/22 16:10 Troponin T Baseline 6 ng/L (0-10) 08/16/22 16:10 Total Protein 7.4 g/dL (6.6-8.7) 08/16/22 16:10 Albumin 4.5 g/dL (3.5-5.2) 08/16/22 16:10 Globulin 2.9 g/dL (1.3-4.6) 08/16/22 16:10 TSH 0.51 uIU/mL (0.27-4.20) 08/16/22 16:10 HCG, Qual Negative (Negative) 08/16/22 16:10 EKG Data EKG 1: EKG interpretation date: 08/16/22 Interpretation: Sinus rhythm, 76 bpm, no ST segment elevation or depression seen. Other EKG comments: Chest X-Ray 08/16/22 15:47 IMPRESSION: No acute findings. Discharge Plan Discharge Patient Disposition: Home Clinical Impression: Heart palpitations, Headache Condition: Stable Prescriptions: New ondansetron 4 mg tablet,disintegrating 4 mg PO Q8H PRN (Reason: nausea and vomiting) Qty: 15 0RF Discharge Orders: Discharge ED (Routine); Ordered 08/16/22 Ordered By: Jorgito John Referrals: Nellie Allison, [facility] [Primary Care Provider] - Discharge Diet: Regular Discharge Activity: Increase activity as tolerated Patient Instructions: Heart Palpitations (ED) Activity Restrictions/Additional Instructions: Follow-up with medical provider as directed in the next 7 to 10 days for reevaluation. Case management should be contacting you to get you set up with a Holter monitor within the next week. Take medications as prescribed. Return to the ER or your medical provider if condition worsens. Please read and understand discharge instructions. Thank you for choosing [facility] for your healthcare needs today. Please realize this is an emergency room and that we are providing you with a medical screening exam and this may not be complete and all inclusive of all the testing and or work up that you may need to determine your ailment or severity of your illness. It is very important that you follow up as instructed or that you return to the Emergency Department should you have concerns or if your condition changes or worsens in any way. Coding Level of Care Code ED [employer] Utility Operator for [address]
[2022-08-16 16:09] VITALS: BP 115/92; RESP 82; O2SAT 99
[2022-08-16 16:19] LABS: Basophils % 0.3 %; Eosinophils # 0.1 10^3/uL (0.0-0.8); Eosinophils % 0.8 %; Hematocrit 43.3 % (37.0-47.0); Hemoglobin 14.2 g/dL (11.5-15.3); Lymphocytes # 2.1 10^3/uL (0.8-4.8); Lymphocytes % 21.4 %; Mean Corpuscular HGB Conc 32.8 g/dL (30.0-36.0); Mean Corpuscular Hemoglobin 28.1 pg (28.0-34.0); Mean Corpuscular Volume 85.7 fl (81-99); Mean Platelet Volume 10.1 fL (7.4-10.4); Monocytes # 0.8 10^3/uL (0.2-0.9); Monocytes % 8.1 %; Neutrophils # 6.91 10^3/uL (1.8-7.7); Neutrophils % 69.3 %; Nucleated Red Blood Cells % 0 %; Platelet Count 257 10^3/cmm (130-400); Red Blood Count 5.05 10^6/uL (4.1-5.3); Red Cell Distribution Width 12.4 % (12.1-15.1)
[2022-08-16] MEDS: sodium chloride 0.9% 1,000 ML 999 ML IV (16:22)
[2022-08-16] MEDS: ondansetron 2 mg/ML SDV 2 mL 4 MG IVP (16:22)
--- NOTE | 2022-08-16 16:38 | ECG_ITS ---
[facility] Test Date: 2022-08-16 Pat Name: Lennie King Department: Room: Gender: Female Field Service Tech: : [id number] Requested By: Jorgito John Order Number: [id number] Sheela MD: Alvaro Engle M.D. Measurements Intervals [place] Rate: 76 P: 65 WA: 150 QRS: 68 QRSD: 79 T: 30 QT: 337 QTc: 380 Interpretive Statements SINUS RHYTHM Compared to ECG 04/22/2021 19:36:28 Sinus arrhythmia no longer present Short WA interval no longer present Electronically Signed On 08-17-2022 9:42:55 CDT by Alvaro Engle M.D. [id number]
[2022-08-16 16:42] LABS: HCG, Serum Qual Negative (Negative)
[2022-08-16 16:52] LABS: Troponin(5th) Baseline 6 ng/L (0-10)
[2022-08-16 17:02] LABS: Alanine Aminotransferase 6 U/L (0-33); Albumin Level 4.5 g/dL (3.5-5.2); Alkaline Phosphatase 74 U/L (35-105); Aspartate Amino Transferase 10 U/L (0-32); Blood Urea Nitrogen 14 mg/dL (6-20); Calcium 9.1 mg/dL (8.5-10.5); Carbon Dioxide 24 mmol/L (22-29); Chloride 101 mmol/L (98-107); Globulin 2.9 g/dL (1.3-4.6); Glomerular Filtration Rate 102.8 mL/min (90-130); Glucose 81 mg/dL (65-115); Osmolality Calculated 282 mOsm/kg (285-295); Sodium 136 mmol/L (136-145); Thyroid Stimulating Hormone 0.51 uIU/mL (0.27-4.20); Total Bilirubin 0.3 mg/dL (0.15-1.2); Total Protein 7.4 g/dL (6.6-8.7)
[2022-08-16 17:09] LABS: Anion Gap 15.1 (5-19); Potassium 4.1 mmol/L (3.5-5.1)
[2022-08-16] MEDS: ketorolac 30 mg/mL INJ IVP (17:34)
[2022-08-16 17:35] VITALS: BP 110/72; PULSE 88; RESP 19; O2SAT 100
--- NOTE | 2022-08-18 13:39 | DCPLANNER ---
Addendum entered by Dori Ghosh 09/12/22 09:00: Patient had a follow up appointment scheduled with heart care - patient did attend appointment Addendum entered by Dori Ghosh 08/19/22 14:47: Patient has a follow up appointment scheduled for Saturday, September 10, 2022 at 10:00 at heart care. Original Note: assistant customer service manager had message to schedule an outpatient halter monitor for patient. assistant customer service manager faxed signed order to heart care, who will call patient with appointment information.
== END 2022-08-16 17:40 | disposition home or self-care (01) ==
PROVIDERS: Emergency Provider Physician Assistant; PCP Nurse Practitioner
DX: R00.2 Palpitations (principal); R51.9 Headache, unspecified
CPT/HCPCS: 71045; 80053; 84443; 84484; 84703; 85025; 93005; 96361; 96374; 96375; 99285; J1885; J2405; J7030

== ENCOUNTER → 2022-09-22 16:13 | Outpatient (BNVA) | payer BC, MEDICAID, SELFPAY | PROVIDERS: PCP Nurse Practitioner; Visit Provider Nurse Practitioner Family | DX: R00.0 Tachycardia, unspecified (principal) | CPT/HCPCS: 84439; 84481 ==

== ENCOUNTER → 2022-10-30 10:15 | Outpatient (BNVA) | payer BC, MEDICAID, SELFPAY | PROVIDERS: PCP Nurse Practitioner; Visit Provider Nurse Practitioner Women's Health | DX: Z12.4 Encounter for screening for malignant neoplasm of cervix (principal); Z30.9 Encounter for contraceptive management, unspecified; Z30.432 Encounter for removal of intrauterine contraceptive device | CPT/HCPCS: 88175 ==

== ENCOUNTER → 2023-11-03 10:26 | Outpatient (BNVA) | payer OTHER, SELFPAY | PROVIDERS: PCP Nurse Practitioner; Visit Provider Nurse Practitioner Women's Health | DX: Z12.4 Encounter for screening for malignant neoplasm of cervix (principal) | CPT/HCPCS: 87624 ==

== ENCOUNTER → 2023-12-01 07:59 | Outpatient (BNVA) | payer OTHER, SELFPAY | PROVIDERS: PCP Nurse Practitioner; Visit Provider Nurse Practitioner Women's Health | DX: R10.2 Pelvic and perineal pain (principal) | CPT/HCPCS: 76830 ==

== ENCOUNTER → 2023-12-17 17:17 | Outpatient (BNVA) | payer OTHER, SELFPAY | PROVIDERS: PCP Nurse Practitioner | DX: N92.6 Irregular menstruation, unspecified (principal); Z3A.01 Less than 8 weeks gestation of pregnancy | CPT/HCPCS: 81025 ==

== ENCOUNTER → 2023-12-29 13:41 | Outpatient (BNVA) | payer OTHER, SELFPAY | PROVIDERS: PCP Nurse Practitioner; Visit Provider Nurse Practitioner Women's Health | DX: N91.2 Amenorrhea, unspecified (principal); Z3A.01 Less than 8 weeks gestation of pregnancy | CPT/HCPCS: 81025; 84702; 86850; 86900 ==

== ENCOUNTER → 2024-01-12 13:21 | Outpatient (BNVA) | payer OTHER, SELFPAY | PROVIDERS: PCP Nurse Practitioner; Visit Provider Obstetrics & Gynecology | DX: Z34.91 Encounter for supervision of normal pregnancy, unspecified, first trimester (principal); Z3A.01 Less than 8 weeks gestation of pregnancy | CPT/HCPCS: 76801 ==

== ENCOUNTER → 2024-01-26 12:41 | Outpatient (BNVA) | payer OTHER, SELFPAY | PROVIDERS: PCP Nurse Practitioner; Visit Provider Nurse Practitioner Women's Health | DX: Z34.90 Encounter for supervision of normal pregnancy, unspecified, unspecified trimester (principal) | CPT/HCPCS: 80307; 84443; 85025; 86592; 86762; 86803; 86850; 86900; 87086; 87340; 87491; 87591; 87661; 87806 ==

== ENCOUNTER → 2024-03-16 13:51 | Outpatient (BNVA) | payer OTHER, SELFPAY | PROVIDERS: PCP Nurse Practitioner; Visit Provider Obstetrics & Gynecology | DX: Z34.90 Encounter for supervision of normal pregnancy, unspecified, unspecified trimester (principal) | CPT/HCPCS: 84315 ==

== ENCOUNTER → 2024-04-11 09:15 | Outpatient (BNVA) | payer OTHER, SELFPAY | PROVIDERS: PCP Nurse Practitioner; Visit Provider Obstetrics & Gynecology | DX: O26.892 Other specified pregnancy related conditions, second trimester (principal); Z3A.18 18 weeks gestation of pregnancy | CPT/HCPCS: 76805 ==

== ENCOUNTER → 2024-04-18 09:36 | Outpatient (BNVA) | payer OTHER, SELFPAY | PROVIDERS: PCP Nurse Practitioner; Visit Provider Obstetrics & Gynecology | DX: Z34.90 Encounter for supervision of normal pregnancy, unspecified, unspecified trimester (principal) | CPT/HCPCS: 84315 ==

== ENCOUNTER → 2024-05-09 08:25 | Outpatient (BNVA) | payer OTHER, SELFPAY | PROVIDERS: PCP Nurse Practitioner; Visit Provider Nurse Practitioner Women's Health | DX: O26.892 Other specified pregnancy related conditions, second trimester (principal); Z3A.22 22 weeks gestation of pregnancy | CPT/HCPCS: 76816; 84315 ==

== ENCOUNTER → 2024-06-06 10:06 | Outpatient (BNVA) | payer OTHER, SELFPAY | PROVIDERS: PCP Nurse Practitioner; Visit Provider Obstetrics & Gynecology | DX: Z34.90 Encounter for supervision of normal pregnancy, unspecified, unspecified trimester (principal) | CPT/HCPCS: 84315; 85025 ==

== ENCOUNTER → 2024-06-22 09:22 | Outpatient (BNVA) | payer OTHER, SELFPAY | PROVIDERS: PCP Nurse Practitioner; Visit Provider Obstetrics & Gynecology | DX: Z34.90 Encounter for supervision of normal pregnancy, unspecified, unspecified trimester (principal) | CPT/HCPCS: 82950; 84315 ==

== ENCOUNTER → 2024-07-07 15:17 | Outpatient (BNVA) | payer OTHER, SELFPAY | PROVIDERS: PCP Nurse Practitioner; Visit Provider Nurse Practitioner Women's Health | DX: O26.891 Other specified pregnancy related conditions, first trimester (principal); Z3A.01 Less than 8 weeks gestation of pregnancy | CPT/HCPCS: 84315 ==

== ENCOUNTER → 2024-07-19 10:39 | Outpatient (BNVA) | payer OTHER, SELFPAY | PROVIDERS: PCP Nurse Practitioner; Visit Provider Nurse Practitioner Women's Health | DX: Z34.90 Encounter for supervision of normal pregnancy, unspecified, unspecified trimester (principal) | CPT/HCPCS: 84315 ==

== ENCOUNTER 2024-07-20 11:59 | Outpatient (CLI) | payer OTHER, SELFPAY ==
[2024-07-20 12:06] VITALS: RESP 16
[2024-07-20 12:07] VITALS: BMI 29.0
[2024-07-20 12:12] VITALS: BP 118/73; PULSE 96
[2024-07-20] MEDS: betamethasone susp 6 mg/mL 5 mL 12 MG IM (12:22)
[2024-07-20 12:27] VITALS: BP 120/79; PULSE 82
[2024-07-20 12:32] VITALS: BP 120/79; PULSE 82; RESP 16
== END 2024-07-20 12:35 | disposition home or self-care (01) ==
LOC: OPOB 12:00 → OBGYN 12:01
PROVIDERS: PCP Nurse Practitioner; Visit Provider Obstetrics & Gynecology
DX: O26.899 Other specified pregnancy related conditions, unspecified trimester (principal); Z3A.00 Weeks of gestation of pregnancy not specified
CPT/HCPCS: 59025; 96372; 99211; J0702

== ENCOUNTER 2024-07-31 13:07 | Outpatient (CLI) | payer OTHER, SELFPAY ==
[2024-07-31 13:08] VITALS: BMI 28.9
[2024-07-31 13:13] VITALS: BP 118/75; PULSE 115
[2024-07-31 13:33] VITALS: BP 113/71; PULSE 107
== END 2024-07-31 13:40 | disposition home or self-care (01) ==
LOC: OPOB 13:07 → OBGYN 13:09
PROVIDERS: PCP Nurse Practitioner; Visit Provider Obstetrics & Gynecology
DX: O36.5990 Maternal care for other known or suspected poor fetal growth, unspecified trimester, not applicable or unspecified (principal); Z3A.00 Weeks of gestation of pregnancy not specified
CPT/HCPCS: 59025; 99211

== ENCOUNTER → 2024-08-03 09:59 | Outpatient (BNVA) | payer OTHER, SELFPAY | PROVIDERS: PCP Nurse Practitioner; Visit Provider Obstetrics & Gynecology | DX: Z34.90 Encounter for supervision of normal pregnancy, unspecified, unspecified trimester (principal) | CPT/HCPCS: 84315; 87081 ==